=== PATIENT | female | born 1940 | race Caucasian/White ===

== ENCOUNTER 2018-03-29 18:38 | Emergency (ER) | payer MEDICARE, OTHER, SELFPAY ==
--- NOTE | 2018-03-29 18:45 | DI.RAD.S_ITS ---
PROCEDURE: XR CHEST 1V INDICATIONS: shortness of breath TECHNIQUE: One view of the chest was acquired. COMPARISON: [facility], , CHEST 1 VIEW, 09/23/2016, 8:53. FINDINGS: Surgical changes and devices: Left sided pacer. Median sternotomy. A right-sided portacatheter. Lungs and pleura: No pleural effusions or pneumothorax. Lungs are clear. Mediastinum: Mediastinal contours appear normal. Heart size is normal. Bones and chest wall: No suspicious bony lesions. Overlying soft tissues appear unremarkable. IMPRESSION: No acute process. Dictated by: Malu Giles M.D. on 03/29/2018 at 19:06 Approved by: Malu Giles M.D. on 03/29/2018 at 19:07
[2018-03-29 18:49] VITALS: BP 140/109; PULSE 121; RESP 17; TEMP 36.7; O2SAT 99; BMI 36.3
--- NOTE | 2018-03-29 18:56 | ED_ITS ---
HPI - SOB/Dyspnea General Chief Complaint: Shortness of Breath/Dyspnea Stated Complaint: told to be seen for a blood clot Time Seen by Provider: 03/29/18 18:43 Source: patient Mode of arrival: ambulatory Limitations: no limitations History of Present Illness Patient is a 77-year-old female sent from her primary care doctor's office for evaluation of a potential pulmonary embolism. Patient states she went to see her primary care doctor today for evaluation after she has been feeling fatigued for the past month. Denies any chest pain. States she has occasional shortness of breath. Does have a history of atrial fibrillation. Does not feel the atrial fibrillation. States she does not feel her heart rate beating fast. No trauma. Is not currently on any anticoagulation. At the primary care doctor's office today was noticed that her heart rate was elevated. Patient states that her primary care doctor discontinued her sotalol and doubled her metoprolol. She states she did take an extra dose of metoprolol today. Patient states she left her doctor's office and he called her later on in the day and advised her to come to the emergency department for evaluation. Dr. Yuan did call me prior to arrival stating that she was on her way and that he was concerned about a pulmonary embolism. He states the office today that they were unable to draw blood. He thought initially that the fatigue over the past month was secondary to her AFib and tachycardia however upon re-evaluating her case and also the reports of occasional shortness of breath that potentially the tachycardia was secondary to a pulmonary embolism. He stated that the patient has had renal insufficiency and there would be a concern about being able to obtain a CTA. Related Data Home Medications Medication Instructions Recorded Confirmed ascorbic acid (vitamin C) 500 mg PO QDAY #0 09/02/16 ropinirole 1 mg PO HS #0 09/02/16 sotalol 120 mg PO BID #0 09/02/16 Previous Rx's Medication Instructions Recorded ferrous sulfate [Feosol] 325 mg PO BID #60 tab 09/03/16 pantoprazole [Protonix] 40 mg PO QDAY #30 tab 09/03/16 nystatin [Nystop] 0 gm TOPICAL BID #30 09/27/16 Allergies Allergy/AdvReac Type Severity Reaction Status Date / Time Penicillins [PENICILLINS] Allergy Unknown Verified 03/29/18 18:49 Review of Systems Constitutional Reports fatigue, Denies fever(s), Denies headache(s), Reports lethargy, Reports malaise and Denies weakness ENT Ears, Nose, Mouth, and Throat: Denies vertigo, Denies dizziness and Denies headache(s) Cardiovascular Denies chest pain, Denies chest pain with activity, Denies diaphoresis, Denies syncope, Denies irregular heart rhythm, Denies leg edema, Denies palpitations, Reports dyspnea (Occasional, none now) and Denies dyspnea on exertion Respiratory Denies cough, Reports dyspnea (Occasional, none now) and Denies dyspnea on exertion Gastrointestinal Gastrointestinal: Denies constipation, Denies diarrhea, Denies nausea and Denies vomiting Genitourinary Denies dysuria Musculoskeletal Denies abnormal gait, Denies myalgias and Denies arthralgias Integumentary/Breasts Denies pruritus and Denies rash Neurologic Denies abnormal gait, Denies confusion, Denies vertigo, Denies dizziness, Denies syncope, Denies headache(s) and Denies weakness Psychiatric Denies confusion Endocrine Reports fatigue and Denies palpitations Hematologic/Lymphatic Denies easy bleeding and Denies easy bruising [facility] Medical History Afib (Acute) Social History lives independently: Yes caregiver/support person: No Smoking Status: Never smoker Exam Initial Vital Signs Initial Vital Signs: Vital Signs Temperature 98.0 F 03/29/18 18:49 Pulse Rate 121 H 03/29/18 18:49 Respiratory Rate 17 03/29/18 18:49 Blood Pressure 140/109 H 03/29/18 18:49 Pulse Oximetry 99 03/29/18 18:49 Const General: cooperative, healthy appearing, comfortable, well developed, well groomed and No acute distress Orientation: alert, awake and oriented x3 HENMT Head: normal to inspection and normocephalic Resp Effort & Inspection: normal respiratory effort Auscultation: clear to auscultation bilaterally Cardio Rate: tachycardic Rhythm: abnormal rhythm irregularly irregular Pulses: radial pulses present GI Inspection: non-distended Palpation: No firm Skin Lesions: no lesions Rashes: no rashes Neuro General: alert and oriented x3 Cognition: normal cognition Speech: speech normal Gait: normal gait Motor: muscle tone normal throughout Sensory Exam: no sensory deficits noted Extrem General: normal to inspection, capillary refill normal and No edema Psych Appearance: grossly normal and well kempt Scores GCS Wanda coma scale eye opening: Spontaneous Wanda coma scale verbal response: Orientated [place] coma scale motor response: Obey commands Wanda coma scale total score: 15 Course Orders Ordered: ED Orders 03/29/18 18:45 XR chest 1V Stat EKG-12 Lead Stat 03/29/18 19:35 B Type Natriuretic Peptide Stat Basic Metabolic Panel Stat Complete Blood Count AUTO DIFF Stat Partial Thromboplastin Time Stat Prothrombin Time INR Stat Troponin I Stat Discontinued Medications Sodium Chloride (Normal Saline 0.9%) 1,000 mls @ 1,000 mls/hr IV BOLUS ONE Stop: 03/29/18 19:42 Last Admin: 03/29/18 19:25 Dose: 1,000 mls/hr Vital Signs - 8 hr 03/29/18 18:49 03/29/18 19:57 03/29/18 20:10 Temperature 98.0 F Pulse Rate 121 H 99 H 105 H Respiratory Rate 17 16 16 Blood Pressure 140/109 H Blood Pressure [Right Arm] 100/51 L 145/97 H Pulse Oximetry 99 98 97 03/29/18 20:53 Temperature Pulse Rate 108 H Respiratory Rate 18 Blood Pressure Blood Pressure [Right Arm] 140/105 H Pulse Oximetry 96 MDM - SOB/Dyspnea Medical Records Attestation: I reviewed the patient's medical records. Lab Data Attestation: I reviewed the patient's lab results. Result diagrams: 03/29/18 19:35 03/29/18 19:35 Lab Results 03/29/18 03/29/18 03/29/18 Range/Units 19:35 19:35 19:35 WBC 7.8 (4.5-11.0) X10^3/uL RBC 4.92 (4.0-5.2) X10^6/uL Hgb 15.5 (12.0-16.0) g/dL Hct 45.3 (36-46) % MCV 92.0 (80-100) fL MCH 31.6 (26-34) PG MCHC 34.3 (30-36) % RDW 14.1 (11.6-14.8) % Plt Count 252 (150-400) X10^3/uL Neut % (Auto) 72.4 (50-75) % Lymph % (Auto) 16.0 L (25-40) % Hardy % (Auto) 8.5 (3-14) % Eos % (Auto) 2.1 (2-4) % Baso % (Auto) 1.0 (0-2) % Neut # (Auto) 5600 (5828-2674) /uL PT 11.6 (10.1-12.7) SECONDS INR 1.1 (0.9-1.3) APTT 27 (26.4-36.2) SECONDS Sodium 140 (137-145) mmol/L Potassium 4.8 (3.4-5.1) mmol/L Chloride 109 H (98-107) mmol/L Carbon Dioxide 17 L (22-32) mmol/L BUN 46 H (7-17) mg/dL Creatinine 2.40 H (0.52-1.04) mg/dL Estimated GFR 19.6 L (>60) mL/min BUN/Creatinine Ratio 19.2 (6-22) Glucose 231 H (80-110) mg/dL Calcium 9.4 (8.4-10.2) mg/dL Troponin I 0.053 H (0.01-0.034) ng/mL B-Natriuretic Peptide 466.0 H (<100) Imaging Data Chest x-ray: Radiologist's impression: PROCEDURE: XR CHEST 1V INDICATIONS: shortness of breath TECHNIQUE: One view of the chest was acquired. COMPARISON: [facility], CHEST 1 VIEW, 09/23/2016, 8:53. FINDINGS: Surgical changes and devices: Left sided pacer. Median sternotomy. A right- sided portacatheter. Lungs and pleura: No pleural effusions or pneumothorax. Lungs are clear. Mediastinum: Mediastinal contours appear normal. Heart size is normal. Bones and chest wall: No suspicious bony lesions. Overlying soft tissues appear unremarkable. IMPRESSION: No acute process. Dictated by: Malu Giles M.D. on 03/29/2018 at 19:06 Approved by: Malu Giles M.D. on 03/29/2018 at 19:07 ECG Data Attestation: I personally reviewed and interpreted this ECG as follows: Prior ECG tracings: not available for review Interpretation: Atrial fibrillation Ventricular rate of 118 Left axis deviation LVH Nonspecific ST T wave changes MDM Narrative Medical decision making narrative: Patient is currently in atrial fibrillation. Had heart rates ranging from 80s to 130s. Not hypotensive. Patient denies chest pain. Not currently short of breath. Chest x-ray is unremarkable. EKG confirms the atrial fibrillation. Patient has a GFR that prohibits obtaining a CTA for evaluation of a pulmonary embolism here in the emergency department. Interrogation of her pacemaker shows frequent episodes of atrial fibrillation with RVR however pacemaker working appropriately. Patient also with a slightly elevated troponin. Multiple times she reported that she was not having chest pain. This elevated troponin could certainly be the result of her renal insufficiency and also the result of the pacemaker. No prior troponins to compare this 1 with. Patient also with a slightly elevated BNP however not clinically in heart failure. Also hyperglycemic. Had a long discussion with the patient regarding her symptoms and her lab results. Informed her that we were unable to obtain the CTA for evaluation of the pulmonary embolism which was why she was sent here to the emergency department by her primary doctor. Informed her that to complete this workup we would need to admit her to the hospital to obtain a V/Q scan. We also discussed her slightly elevated troponin in the concerns that we had regarding ACS. After this discussion the patient stated that she did not want to be admitted to the hospital. Once again we discussed that we did not rule out the reason that she was sent here to the emergency department which was evaluation for pulmonary embolism. She expressed understanding of this. We did discuss once again the elevated troponin the concern for ACS and she again expressed understanding. Patient has a GCS of 15. In my opinion has the capacity to make decisions. She did not want to be admitted. Patient was discharged home. She was instructed to continue her medications as instructed by her primary doctor. She was instructed she needed to call her primary doctor tomorrow morning to discuss further workup of her symptoms. She was given return precautions to include chest pain shortness of breath dizziness. She expressed understanding that not diagnosing a pulmonary embolism or ACS could result in . Discharge Plan Departure Patient Disposition: Home, Self-Care Clinical Impression: A-fib, Acute renal insufficiency, Hyperglycemia, Tachycardia Discharge Date/Time: 03/29/18 21:10 Instructions: DI for Atrial Fibrillation Activity Restrictions/Additional Instructions: You opted not to be admitted to the hospital today despite not definitively ruling out a pulmonary embolism which is why your primary doctor sent you here.. Because of this you do need to contact her primary doctor tomorrow morning. Continue all of your medications as directed by your primary doctor. Return to the emergency department for any new symptoms, chest pain, worsening problems breathing, passing out, or any other concerning symptoms. Prescriptions: No Action ropinirole 0.5 MG tablet 1 mg PO HS Qty: 0 RF: 0 sotalol 120 MG tablet 120 mg PO BID Qty: 0 RF: 0 ascorbic acid (vitamin C) 500 MG tablet 500 mg PO QDAY Qty: 0 RF: 0 pantoprazole [Protonix] 40 MG tablet,delayed release (DR/EC) 40 mg PO QDAY Qty: 30 RF: 1 ferrous sulfate [Feosol] 325 MG tablet 325 mg PO BID Qty: 60 RF: 1 nystatin [Nystop] 30 GM powder Topical BID Qty: 30 RF: 0
[2018-03-29] MEDS: SODIUM CHLORIDE 0.9% 1,000 ML 1000 ML IV (19:25)
[2018-03-29 19:44] LABS: Add Manual Diff / Slide Review NO; Eosinophils Percent Auto 2.1 % (2-4); Hematocrit 45.3 % (36-46); Hemoglobin 15.5 g/dL (12.0-16.0); Mean Corpuscular HGB Conc 34.3 % (30-36); Mean Corpuscular Hemoglobin 31.6 PG (26-34); Monocytes Percent Auto 8.5 % (3-14); Neutrophils Absolute Auto 5600 /uL (3000-5900); Neutrophils Percent Auto 72.4 % (50-75); Platelet Count 252 X10^3/uL (150-400); Red Blood Cell Count 4.92 X10^6/uL (4.0-5.2); Red Cell Distribution Width 14.1 % (11.6-14.8); White Blood Cell Count 7.8 X10^3/uL (4.5-11.0)
[2018-03-29 19:55] LABS: INR 1.1 (0.9-1.3); Prothrombin Time 11.6 SECONDS (10.1-12.7)
[2018-03-29 19:57] VITALS: BP 100/51; PULSE 99; RESP 16; O2SAT 98
[2018-03-29 19:57] LABS: PTT Partial Thromboplastin Tim 27 SECONDS (26.4-36.2)
[2018-03-29 19:58] LABS: BUN Creatinine Ratio 19.2 (6-22); Blood Urea Nitrogen 46 mg/dL (7-17); Calcium 9.4 mg/dL (8.4-10.2); Carbon Dioxide 17 mmol/L (22-32); Chloride 109 mmol/L (98-107); Estimated Glomerular Filt Rate 19.6 mL/min (>60); Glucose 231 mg/dL (80-110); HEMOLYSIS 20 (0-50); Potassium 4.8 mmol/L (3.4-5.1); Sodium 140 mmol/L (137-145)
[2018-03-29 20:10] VITALS: BP 145/97; PULSE 105; RESP 16; O2SAT 97
[2018-03-29 20:10] LABS: Troponin I 0.053 ng/mL (0.01-0.034)
[2018-03-29 20:53] VITALS: BP 140/105; PULSE 108; RESP 18; O2SAT 96
[2018-03-29 21:07] VITALS: BP 141/105; PULSE 119; RESP 16; O2SAT 96
== END 2018-03-29 21:10 | disposition home or self-care (01) ==
PROVIDERS: Emergency Provider Emergency Medicine; PCP Internal Medicine
DX: I48.91 Unspecified atrial fibrillation (principal); N28.9 Disorder of kidney and ureter, unspecified; R73.9 Hyperglycemia, unspecified
CPT/HCPCS: 71045; 80048; 83880; 84484; 85025; 85610; 85730; 93005; 93010; 96360; 96361; 99283; 99285

== ENCOUNTER → 2018-03-30 14:13 | Outpatient (CLI) | payer MEDICARE, OTHER, SELFPAY ==
--- NOTE | 2018-03-30 | DI.NM.S_ITS ---
PROCEDURE: NM PUL VENT AND PERFUSION RADIOPHARMACEUTICAL: 35.6 mCi Tc-99m DTPA aerosol by inhalation and 9.5 mCi Tc-99m MAA intravenously. INDICATIONS: SOB TECHNIQUE: Ventilation images were obtained first with Tc-99m DTPA aerosol. Subsequently, perfusion images were acquired after intravenous injection of Tc-99m MAA. Anterior, posterior, DAMON, LULA, RPO, LPO, left and right lateral views were obtained. COMPARISON: None. FINDINGS: Small subsegmental perfusion defects are seen in posterior segment of right upper lobe and superior segment of left lower lobe. No segmental mismatched defects are seen. IMPRESSION: Very low probability for pulmonary emboli. Findings were called to Dr. Yuan's office at 3:45 PM on 03/30/18. Dictated by: Jignesh Hernandez M.D. on 03/30/2018 at 15:42 Approved by: Jignesh Hernandez M.D. on 03/30/2018 at 15:57
== END ==
PROVIDERS: PCP Internal Medicine; Visit Provider Internal Medicine
DX: R06.02 Shortness of breath (principal)
CPT/HCPCS: 78582; A9539; A9540

== ENCOUNTER → 2018-04-05 09:11 | Outpatient (CLI) | payer MEDICARE, OTHER, SELFPAY ==
--- NOTE | 2018-04-05 21:30 | DI.ECHO.S_ITS ---
Echocardiogram Report + + :Name: BERTHA HERNANDEZ Study Date: 04/05/2018 Height: 66 in : :[facility] Weight: 225 lb: : Gender: Female BSA: 2.1 m2 : :: 1940 Age: 77 yrs : :Reason For Study: Congestive Heart Failure : :Ordering Physician: Dr. Jean : :[place] Performed By: Amisha Rosales : + + Interpretation Summary -The study quality was technically difficult. A contrast injection of Definity was performed to improve assessment of LV function. -The patient was in atrial fibrillation with heart rates between 67-133 bpm during the exam. There are multiple PVCs during the exam. -The left ventricular cavity is small. Left ventricular wall thickness is severely increased. 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 -The left atrium is severely dilated. -The reduced mitral leaflet separation suggests decreased flow through the mitral valve and poor cardiac output. -There is severe mitral annular calcification. -There is a pacemaker lead in the right ventricle. -Right ventricular systolic function is moderately reduced. -Comparison is made with the echocardiogram of 11/11/2017. -Patient is now in atrial fibrillation which is not well-tolerated with severe diastolic dysfunction as evident by poor forward flow and low stroke volume. The severely increased wall thickness can indicate hypertrophic cardiomyopathy or be due an infiltrative cardiomyopathy(cardiac amyloidosis). Procedure: A two-dimensional transthoracic echocardiogram with color flow and Doppler was performed. A contrast injection of Definity was performed to improve assessment of LV function. The study quality was technically difficult. Comparison is made with the echocardiogram of 11/11/2017. The patient could not tolerate probe pressure from parasternal and subcostal views. No audible blood pressure readings obtained. The patient was in atrial fibrillation with heart rates between 67-133 bpm during the exam. Left Ventricle: The left ventricular cavity is small. Left ventricular wall thickness is severely increased. 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 Diastolic function could not be accurately assessed due to atrial fibrillation. Right Ventricle: There is a pacemaker lead in the right ventricle. The right ventricle is grossly normal size. Right ventricular systolic function is moderately reduced. Atria: The left atrium is severely dilated. The right atrium is mildly dilated. Mitral Valve: There is severe mitral annular calcification. The reduced mitral leaflet separation suggests decreased flow through the mitral valve and poor cardiac output. Doppler data is inadequate (no CW). But suspect some degree of stenosis given the color doppler pattern. There is mild mitral regurgitation. Aortic Valve: The aortic valve opens well. No aortic regurgitation is present. Tricuspid Valve: There is mild tricuspid regurgitation. The right ventricular systolic pressure is estimated at 37 mmHg assuming a right atrial pressure of 3 mm Hg. Pulmonic Valve: The pulmonic valve is not well visualized. Great Vessels: The aortic root is not well visualized. The ascending aorta is normal in size. The pulmonary artery is not well visualized, but is probably normal size. The IVC is of normal diameter and collapses greater than 50% with a sniff. This suggests a low right atrial pressure of 3 mm Hg. Pericardium/ Pleura There is no pericardial effusion. MMode/2D Measurements & Calculations LVIDd: 3.7 cm asc Aorta Diam: 3.2 cm LVIDs: 3.0 cm FS: 21.1 % EPSS: 1.2 cm IVSd: 1.7 cm LVPWd: 1.5 cm LV rich[place]. diameter/BSA (cm/m^2): 1.8 LV sys. diameter/BSA (cm/m^2): 1.4 LA A2 area: 30.0 cm2 RA long axis: 4.1 cm LA A4 area: 31.1 cm2 RA area: 13.2 cm2 LA length (vol): 6.6 cm RA vol: 35.6 ml LA vol: 119.3 ml RA : 17.0 ml/m2 LA vol index: 56.7 ml/m2 IVC diam: 1.7 cm TAPSE: 0.74 cm LVAd ap4: 12.6 cm2 LVAs ap4: 10.8 cm2 LVLs ap4: 6.1 cm LVAd ap2: 19.6 cm2 LVLd ap2: 6.6 cm LVAs ap2: 8.4 cm2 LVLs ap2: 4.8 cm Doppler Measurements & Calculations Ao V2 max: 86.7 cm/sec LVOT Max Guillermo: 67.8 cm/sec Ao V2 mean: 63.6 cm/sec LV V1 max P.9 mmHg Ao max P.0 mmHg LV V1 VTI: 12.3 cm Ao mean P.8 mmHg sev ratio: 0.76 Ao V2 VTI: 16.2 cm TR max guillermo: 290.1 cm/sec MV V2 mean: 73.2 cm/sec TR max P.7 mmHg MV mean P.7 mmHg PA V2 max: 64.3 cm/sec MV V2 VTI: 21.3 cm PA V2 mean: 43.4 cm/sec PA mean P.88 mmHg PA Accel Time: 0.08 sec _ Electronically signed by: Tang Figueroa M.D. on Reading Physician:04/05/2018 09:30 PM
== END ==
PROVIDERS: PCP Internal Medicine; Visit Provider Internal Medicine
DX: I08.1 Rheumatic disorders of both mitral and tricuspid valves (principal); I50.9 Heart failure, unspecified; I48.91 Unspecified atrial fibrillation; I49.3 Ventricular premature depolarization; Z95.0 Presence of cardiac pacemaker
CPT/HCPCS: 93306; Q9957

== ENCOUNTER 2018-04-13 08:56 | Observation (INO) | payer MEDICARE, OTHER, SELFPAY ==
[2018-04-13] VITALS (8 sets, daily range): BP systolic 119–158; BP diastolic 61–93; PULSE 60–72; RESP 14–20; TEMP 36.2–36.4; O2SAT 94–98; BMI 38.0; BMI 37.2
--- NOTE | 2018-04-13 09:18 | ED_ITS ---
HPI - Neuro Symptoms/Deficit General Chief Complaint: Neuro Symptoms/Deficit Stated Complaint: Code Stroke Time Seen by Provider: 04/13/18 09:21 Source: patient and EMS Mode of arrival: EMS History of Present Illness HPI Narrative: Patient is a 77-year-old female presenting as a code stroke with all left-sided weakness and facial drooping. She lives alone. Her last known normal is actually on known. She said that she was awake all night last evening she tried to get out of bed this morning she slid out of bed she was unable to get up she was able to pull cord from the wall for somebody to come in and help her. At that time EMS was called. She has obvious left facial droop and left-sided weakness. But is of awake and alert and able to answer questions. She has a past medical history of AFib previously on Pradaxa but stopped due to GI bleeding x2 in 2017. According to records he was actually seen evaluated by her primary last week on 04/05/2018. At that time she had blood work which showed an increase of creatinine of 2.4, previously 1.6. Location: left face Severity: moderate Related Data Home Medications Medication Instructions Recorded Confirmed ascorbic acid (vitamin C) 500 mg PO QDAY #0 09/02/16 ropinirole 1 mg PO HS #0 09/02/16 sotalol 120 mg PO BID #0 09/02/16 Previous Rx's Medication Instructions Recorded ferrous sulfate [Feosol] 325 mg PO BID #60 tab 09/03/16 pantoprazole [Protonix] 40 mg PO QDAY #30 tab 09/03/16 nystatin [Nystop] 0 gm TOPICAL BID #30 09/27/16 Allergies Allergy/AdvReac Type Severity Reaction Status Date / Time Penicillins [PENICILLINS] Allergy Unknown Verified 04/13/18 09:51 Review of Systems Review of Systems All systems reviewed & are unremarkable except as noted in HPI and below Constitutional Denies chills, Denies fever(s), Denies lethargy and Denies weakness Eyes Denies blurry vision, Denies change in vision and Denies diplopia ENT Ears, Nose, Mouth, and Throat: Denies change in voice, Denies neck pain and Denies sore throat Cardiovascular Reports irregular heart rhythm, Denies dyspnea and Denies dyspnea on exertion Respiratory Denies cough, Denies dyspnea, Denies dyspnea on exertion and Denies wheezing Comments: Seen on 03/29/2018 full lower shortness of breath unable to rule out PE due to create function Gastrointestinal Gastrointestinal: Denies abdominal pain, Denies change in bowel habits, Denies diarrhea, Denies nausea and Denies vomiting Musculoskeletal Denies neck pain Neurologic Reports as per HPI and Denies weakness Allergic/Immunologic Denies wheezing PFSH Medical History Diabetes (Acute) GI bleed (Acute) Hyperlipidemia (Acute) Hypertension (Acute) Hypothyroid (Acute) Afib (Acute) Surgical History Status post colectomy (Acute) Status post hysterectomy (Acute) Status post tonsillectomy and adenoidectomy (Acute) Social History lives independently: Yes caregiver/support person: No Smoking Status: Never smoker Exam Initial Vital Signs Initial Vital Signs: Vital Signs Temperature 97.3 F L 04/13/18 08:43 Pulse Rate 67 04/13/18 08:43 Respiratory Rate 18 04/13/18 08:43 Blood Pressure 158/64 H 04/13/18 08:43 Pulse Oximetry 95 04/13/18 08:43 GENERAL: Alert elderly female with a left facial droop alert and oriented x3 HEENT: Head atraumatic,EOMI, pupils reactive, left facial droop, neck is supple no JVD CARDIOVASCULAR: Regular rate and rhythm without murmurs, rubs or gallops. RESPIRATORY: Breath sounds equal bilaterally, no wheezes rales or rhonchi. ABDOMEN: Soft, nontender. Normoactive bowel sounds all 4 quadrants. No guarding or rebound. EXTREMITIES: Normal range of motion, no clubbing or edema. Neurovascularly intact NEUROLOGICAL: Alert and oriented x4. Left facial droop not able to pick left leg up off the gurney not able to hold left arm but able to move his fingers. No dysarthria or a facial appreciated SKIN: Warm, dry, no laceration, no petechiae, no rashes or lesions. Scores NIH Stroke Scale Level of Conciousness: Alert, keenly responsive Ask month/age: Answers both questions correctly. Open/close eyes, close hand: Performs both tasks correctly Best gaze horizontal: Normal Visual [place]: No visual loss Facial palsy: Partial paralysis, total or near total paralysis of lower face Left arm drift: No effort against gravity Right arm drift: No drift for full 10 sec Left leg drift: No effort against gravity Right leg drift: No drift for full 10 sec Limb ataxia: Absent Sensory on face/arms/legs: Normal, no sensory loss Best language: No aphasia, normal Dysarthria: Normal Extinction or inattention: No abnormality Total NIH Stroke scale score: 8 Course Orders Ordered: ED Orders 04/13/18 09:14 EKG-12 Lead Stat 04/13/18 09:27 Complete Blood Count AUTO DIFF Stat Comprehensive Metabolic Panel Stat 04/13/18 09:51 CT angio head and neck Stat CT head/brain wo con Stat 04/13/18 10:10 Partial Thromboplastin Time Stat Prothrombin Time INR Stat 04/13/18 12:31 Consult to Discharge Planning Routine Consult to Occupational Therapy Evaluate & Treat Consult to Physical Therapy Evaluate & Treat Consult to Speech Therapy Evaluate & Treat Education, smoking cessation ONGOING 04/14/18 12:45 Basic Metabolic Panel DAILY Acetaminophen (Tylenol) 650 mg PO Q6HR PRN PRN Reason: Fever Aspirin (Aspirin Ec) 325 mg PO DAILY CINDY Atorvastatin Calcium (Lipitor) 80 mg PO BEDTIME CINDY Enoxaparin Sodium (Lovenox) 30 mg SUBCUT 1700 CINDY Labetalol HCl (Trandate) 10 mg IV Q4HR PRN PRN Reason: Hypertension Ropinirole HCl (Requip) 1 mg PO BEDTIME CINDY Sotalol HCl (Betapace) 120 mg PO BID CINDY Discontinued Medications Aspirin (Aspirin) 300 mg IN NOW ONE Stop: 04/13/18 12:26 Last Admin: 04/13/18 12:43 Dose: Not Given Aspirin (Aspirin Ec) 324 mg PO NOW ONE Stop: 04/13/18 12:45 Last Admin: 04/13/18 12:47 Dose: 324 mg Consultations Consultation #1: Initially called and spoke with Neurology. Noncontrasted head CT was done however due to her most recent creatinine of 2.[address] angio. Urology recommended and requested CT angio if there is a large vessel occlusion she would require thrombectomy, and if large vessel occlusion could have more severe debilitating long-term affects. I have spoken with her after the CT angio. She has reviewed the images herself. No large vessel occlusion appreciated. Is still recommends admission MRI and further evaluation. Time: 09:16 Consultation #2: Dr. Irvin happily accepts for admission Vital Signs - 8 hr 04/13/18 08:43 04/13/18 09:20 04/13/18 10:52 Temperature 97.3 F L Pulse Rate 67 61 60 Respiratory Rate 18 18 18 Blood Pressure 158/64 H Blood Pressure [Left Arm] 154/81 H 119/61 Pulse Oximetry 95 96 98 04/13/18 11:42 Temperature Pulse Rate 60 Respiratory Rate 14 Blood Pressure Blood Pressure [Left Arm] 122/78 H Pulse Oximetry MDM - Neuro Symptoms/Deficit Medical Records Attestation: I reviewed the patient's medical records. Lab Data Attestation: I reviewed the patient's lab results. Result diagrams: 04/13/18 09:27 04/13/18 09:27 Lab Results 04/13/18 04/13/18 04/13/18 Range/Units 09:27 09:27 10:10 WBC 6.7 (4.5-11.0) X10^3/uL RBC 4.53 (4.0-5.2) X10^6/uL Hgb 14.1 (12.0-16.0) g/dL Hct 42.5 (36-46) % MCV 93.8 (80-100) fL MCH 31.1 (26-34) PG MCHC 33.1 (30-36) % RDW 14.7 (11.6-14.8) % Plt Count 163 (150-400) X10^3/uL Neut % (Auto) 78.7 H (50-75) % Lymph % (Auto) 11.9 L (25-40) % [place] % (Auto) 6.7 (3-14) % Eos % (Auto) 2.1 (2-4) % Baso % (Auto) 0.6 (0-2) % Neut # (Auto) 5200 (4522-7905) /uL PT 10.8 (10.1-12.7) SECONDS INR 1.0 (0.9-1.3) APTT 29 D (26.4-36.2) SECONDS Sodium 147 H (137-145) mmol/L Potassium 4.5 (3.4-5.1) mmol/L Chloride 109 H (98-107) mmol/L Carbon Dioxide 25 (22-32) mmol/L BUN 39 H (7-17) mg/dL Creatinine 1.80 H (0.52-1.04) mg/dL Estimated GFR 27.4 L (>60) mL/min BUN/Creatinine Ratio 21.7 (6-22) Glucose 255 H (80-110) mg/dL Calcium 9.0 (8.4-10.2) mg/dL Total Bilirubin 0.6 (0.2-1.3) mg/dL AST 37 H (14-36) IU/L ALT 35 (9-52) IU/L Alkaline Phosphatase 127 H (38-126) U/L Total Protein 7.0 (6.3-8.2) g/dL Albumin 3.9 (3.5-5.0) g/dL Globulin 3.1 (1.7-4.1) g/dL Albumin/Globulin Ratio 1.3 (1.0-2.8) Imaging Data CT scan - head: Radiologist's impression: Impression 1. No evidence of hemorrhage or other imaging contraindication tPA. 2. Small hypodense focus in the right caudate head may represent a small lacunar infarct of indeterminate acuity. 3. Mild chronic white matter small vessel ischemic changes and cerebral volume loss. Findings discussed with Dr. Keen on 04/13/2018 had 9:[address] angio head: Radiologist's impression: PROCEDURE: CT ANGIO HEAD AND NECK INDICATIONS: left weakness unknown LKN TECHNIQUE: Pre-contrast 4.5 mm thick sections acquired from the foramen magnum to the vertex. After the administration of intravenous contrast, 1 mm thick sections acquired from the aortic arch through the [place] of [place]. Post-contrast 4.5 mm thick sections then re- acquired from the foramen magnum to the vertex. 3-dimensional maximum-intensity- projection (MIP) and/or volume rendering reformats were acquired of the central intracranial vasculature and neck separately. COMPARISON: [facility], CT, CT CHEST WO CON, 04/09/2015, 18:17. [facility], CT, HEAD WITHOUT CONTRAST, 09/19/2016, 11:29. [facility], CT, CT HEAD/BRAIN WO CON, 04/13/2018, 8:52. FINDINGS: Image quality: Excellent. BRAIN: CSF spaces: Ventricles are normal in size and shape. Basal cisterns are patent. No extra-axial fluid collections. Brain: No midline shift. No intracranial bleeds or masses. [place]-white matter interface appears intact. Skull and face: Calvarium and facial bones appear intact, without suspicious lesions. Orbits appear normal. Sinuses: Sinuses and mastoids are clear. HEAD CT ANGIOGRAPHY: Anterior circulation: Intracranial internal carotid arteries are normal in size and flow. The flow within the paired anterior cerebral arteries is normal and symmetric. The flow within the middle cerebral arteries is normal and symmetric. The anterior communicating artery is seen. No aneurysms are seen. Posterior circulation: Visualized portions of the vertebral arteries demonstrate normal caliber, and join to form a normal appearing basilar artery. Flow within the posterior cerebral arteries is normal and symmetric. No aneurysms are seen. NECK CT ANGIOGRAPHY: Carotid system: The great vessels demonstrate a conventional anatomy as they arise from the aortic arch. There are scattered atherosclerotic calcifications without focal stenosis The origins of the common carotid arteries appear patent. The common carotid arteries demonstrate normal caliber and courses. The bifurcation regions are both widely patent. The internal carotid arteries demonstrate normal calibers and courses. Posterior circulation: The origins of the vertebral arteries both appear widely patent. The more superior extracranial portions of both vertebral arteries also demonstrate normal courses and calibers. They join to form a normal appearing basilar artery. Soft tissues: Partially visualized possible prominent right hilar lymph node seen on image 234 although technically indeterminate and the study entirely. Bones: No suspicious bony lesions. Visualized cervical spine appears normally aligned. IMPRESSION: No intracranial focal stenosis or occlusion. No ICA stenosis. Questionable enlarged (age indeterminate) right hilar lymph nodes however not entirely included on the study. Contrast enhanced chest CT could be performed for further evaluation if it is deemed clinically necessary. Any quantitative measurements of stenosis were performed using NASCET criteria. Dictated by: Elvin Best M.D. on 04/13/2018 at 10:00 ECG Data Attestation: I personally reviewed and interpreted this ECG as follows: Prior ECG tracings: available for review Interpretation: Paced rhythm rate 72 no ischemia similar to previous MDM Narrative Medical decision making narrative: Patient is not a thrombectomy candidate. Her exact last known normal it is unknown, however may still be a thrombectomy candidate. Benefits seem to outweigh risks for the CTA and renal function, therefore decision for CTA. CTA does not show large vessel occlusion. His neurology is aware of results. Patient's symptoms are slowly improving. She will be admitted for further evaluation and monitoring. Based on her GI bleeding episodes unknown if she is a candidate for more aggressive anticoagulation. Discharge Plan Departure Patient Disposition: Admitted As Inpatient Clinical Impression: CVA (cerebral vascular accident) Admit Date/Time: 04/13/18 10:53 Admit Provider: Magali Irvin
[2018-04-13 09:34] LABS: Add Manual Diff / Slide Review NO; Basophils Percent Auto 0.6 % (0-2); Eosinophils Percent Auto 2.1 % (2-4); Hematocrit 42.5 % (36-46); Hemoglobin 14.1 g/dL (12.0-16.0); Lymphocytes Percent Auto 11.9 % (25-40); Mean Corpuscular HGB Conc 33.1 % (30-36); Mean Corpuscular Hemoglobin 31.1 PG (26-34); Mean Corpuscular Volume 93.8 fL (80-100); Monocytes Percent Auto 6.7 % (3-14); Neutrophils Absolute Auto 5200 /uL (3000-5900); Neutrophils Percent Auto 78.7 % (50-75); Platelet Count 163 X10^3/uL (150-400); Red Blood Cell Count 4.53 X10^6/uL (4.0-5.2); Red Cell Distribution Width 14.7 % (11.6-14.8); White Blood Cell Count 6.7 X10^3/uL (4.5-11.0)
[2018-04-13 09:43] LABS: Alanine Aminotransferase 35 IU/L (9-52); Albumin 3.9 g/dL (3.5-5.0); Albumin Globulin Ratio 1.3 (1.0-2.8); Alkaline Phosphatase 127 U/L (38-126); Aspartate Aminotransferase 37 IU/L (14-36); BUN Creatinine Ratio 21.7 (6-22); Bilirubin Total 0.6 mg/dL (0.2-1.3); Blood Urea Nitrogen 39 mg/dL (7-17); Carbon Dioxide 25 mmol/L (22-32); Chloride 109 mmol/L (98-107); Estimated Glomerular Filt Rate 27.4 mL/min (>60); Globulin 3.1 g/dL (1.7-4.1); Glucose 255 mg/dL (80-110); HEMOLYSIS 41 (0-50); Potassium 4.5 mmol/L (3.4-5.1); Sodium 147 mmol/L (137-145)
--- NOTE | 2018-04-13 09:51 | DI.CT.S_ITS ---
PROCEDURE: CT ANGIO HEAD AND NECK INDICATIONS: left weakness unknown LKN TECHNIQUE: Pre-contrast 4.5 mm thick sections acquired from the foramen magnum to the vertex. After the administration of intravenous contrast, 1 mm thick sections acquired from the aortic arch through the [place] of [place]. Post-contrast 4.5 mm thick sections then re-acquired from the foramen magnum to the vertex. 3-dimensional zkbmpnw-xldozmvug-lquaodmdrd (MIP) and/or volume rendering reformats were acquired of the central intracranial vasculature and neck separately. COMPARISON: [facility], CT, CT CHEST WO CON, 04/09/2015, 18:17. [facility], CT, HEAD WITHOUT CONTRAST, 09/19/2016, 11:29. [facility], CT, CT HEAD/BRAIN WO CON, 04/13/2018, 8:52. FINDINGS: Image quality: Excellent. BRAIN: CSF spaces: Ventricles are normal in size and shape. Basal cisterns are patent. No extra-axial fluid collections. Brain: No midline shift. No intracranial bleeds or masses. [place]-white matter interface appears intact. Skull and face: Calvarium and facial bones appear intact, without suspicious lesions. Orbits appear normal. Sinuses: Sinuses and mastoids are clear. HEAD CT ANGIOGRAPHY: Anterior circulation: Intracranial internal carotid arteries are normal in size and flow. The flow within the paired anterior cerebral arteries is normal and symmetric. The flow within the middle cerebral arteries is normal and symmetric. The anterior communicating artery is seen. No aneurysms are seen. Posterior circulation: Visualized portions of the vertebral arteries demonstrate normal caliber, and join to form a normal appearing basilar artery. Flow within the posterior cerebral arteries is normal and symmetric. No aneurysms are seen. NECK CT ANGIOGRAPHY: Carotid system: The great vessels demonstrate a conventional anatomy as they arise from the aortic arch. There are scattered atherosclerotic calcifications without focal stenosis The origins of the common carotid arteries appear patent. The common carotid arteries demonstrate normal caliber and courses. The bifurcation regions are both widely patent. The internal carotid arteries demonstrate normal calibers and courses. Posterior circulation: The origins of the vertebral arteries both appear widely patent. The more superior extracranial portions of both vertebral arteries also demonstrate normal courses and calibers. They join to form a normal appearing basilar artery. Soft tissues: Partially visualized possible prominent right hilar lymph node seen on image 234 although technically indeterminate and the study entirely. Bones: No suspicious bony lesions. Visualized cervical spine appears normally aligned. IMPRESSION: No intracranial focal stenosis or occlusion. No ICA stenosis. Questionable enlarged (age indeterminate) right hilar lymph nodes however not entirely included on the study. Contrast enhanced chest CT could be performed for further evaluation if it is deemed clinically necessary. Any quantitative measurements of stenosis were performed using NASCET criteria. Dictated by: Elvin Best M.D. on 04/13/2018 at 10:00 Approved by: Elvin Best M.D. on 04/13/2018 at 10:09
--- NOTE | 2018-04-13 09:51 | DI.CT.S_ITS ---
PROCEDURE: CT HEAD/BRAIN WO CON INDICATIONS: Stroke symptoms. Left-sided weakness. TECHNIQUE: Noncontrast 4.5 mm thick angled axial sections acquired from the foramen magnum to the vertex, with coronal and sagittal reformats. For radiation dose reduction, the following was used: automated exposure control, adjustment of mA and/or kV according to patient size. COMPARISON: None. FINDINGS: Image quality: Excellent. CSF spaces: Basal cisterns are patent. No extra-axial fluid collections. The ventricles are symmetric in size and shape. There is mild cerebral volume loss, with resultant ventricular and sulcal prominence. Brain: No intracranial hemorrhage, mass, or mass effect. There is a small hypodensity in right caudate head which may represent a small lacunar infarct of indeterminate acuity. There are subcortical, periventricular and deep white matter hypodensities consistent with mild chronic small vessel ischemic changes. There is intracranial internal carotid artery atherosclerosis. Skull and face: Calvarium and visualized facial bones appear intact, without suspicious lesions. Sinuses: Visualized sinuses and mastoids are clear. IMPRESSION: 1. No evidence of hemorrhage or other imaging contraindication to TPA. 2. Small hypodense focus in the right caudate head may represent a small lacunar infarct of indeterminate acuity. 3. Mild chronic white matter small vessel ischemic changes and cerebral volume loss. Findings discussed with Dr. Keen on 04/13/18 at 9:05 AM. Dictated by: Jairo Langford M.D. on 04/13/2018 at 9:04 Approved by: Jairo Langford M.D. on 04/13/2018 at 9:08
[2018-04-13 10:28] LABS: Prothrombin Time 10.8 SECONDS (10.1-12.7)
[2018-04-13 10:30] LABS: PTT Partial Thromboplastin Tim 29 SECONDS (26.4-36.2)
[2018-04-13] MEDS: ASPIRIN EC 81 MG TABLET 324 MG PO (12:47)
--- NOTE | 2018-04-13 13:49 | PC.NURSE ---
1300 arrived from ED via stretcher. Pt is awake, oriented x3, was not sure of the day of the week. Pt push & pad machine feeder are equal/strong, NIH stroke scale 100%. Pt able to swallow w/o diff., Instructed Pt to have HOB upright before swallowing. Pt refuses to have HOB > 30 degrees, Pt states is uncomfortable. Pt has a colostomy D/T crohns disease. 1400 Pt took in jello & sips of water, maida well. Tele on: SR 60s. VS wnl. Pt states she did not fall at home, but did slid oob to the floor. Denies pain or injury.
--- NOTE | 2018-04-13 14:45 | PT.IIE ---
Current Diagnoses Type 2 diabetes mellitus without complications (04/13/18) Morbid (severe) obesity due to excess calories (04/13/18) Essential (primary) hypertension (04/13/18) Paroxysmal atrial fibrillation (04/13/18) Cerebral infarction, unspecified (04/13/18) Unspecified kidney failure (04/13/18) Surgical History (Last Reviewed 04/13/18 @ 16:16 by Magali Irvin MD) Status post colectomy (Acute) Status post hysterectomy (Acute) Status post tonsillectomy and adenoidectomy (Acute) Medical History (Last Reviewed 04/13/18 @ 16:16 by Magali Irvin MD) Chronic renal disease, stage 3, moderately decreased glomerular filtration rate (GFR) between 30-59 mL/min/1.73 square meter (Acute) Concussion (Acute) Crohn's disease (Acute) Diabetes (Acute) GI bleed (Acute) History of shingles (Acute) Hx SBO (Acute) Hyperlipidemia (Acute) Hypertension (Acute) Hypothyroid (Acute) Ileostomy, has currently (Acute) Neuropathy (Acute) Osteoarthritis (Acute) Pacemaker (Acute) Sleep apnea (Acute) Afib (Acute) Physical Therapy Inpatient Evaluation/Re-Eval M1 PT/OT-IP Prior Functional Status Start: 04/13/18 16:22 Freq: NEEDED Status: Active Protocol: Document 04/13/18 14:45 MDD (Rec: 04/13/18 16:38 MDD [email or web address]) Medical Review Prior Functional Status Medical History Reviewed Yes Communication normal Mobility and Gait independent with no AD Activities of Daily Living and IADL's independent with ADL's Social History Household Members none Living Arrangements House Number of Floors (Floors) One Floor Number of Stairs To Enter/Railing? no steps Home Environment High Toilet Walk in Shower Employment Status Retired Additional Social History Comment Pt lives alone in a house in [facility]. 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 Therapy Pain Assessment Pain When Pain Assessed At Rest Pain Present Pain Present Denied Pain M4 PT-IP Mobility and Gait Start: 04/13/18 16:22 Freq: NEEDED Status: Active Protocol: Document 04/13/18 14:45 MDD (Rec: 04/13/18 16:38 MDD [email or web address]) PT-Bed Mobility Assessment Rolling Type of Rolling Roll to Left Level of Assist Contact Guard Assistance Supine to Sit Supine to Sit Minimal Assistance Sit to Supine Sit to Supine Independent Scooting Scooting to Edge of Bed Independent PT-Transfer Assessment Sit to and From Stand Sit to and from Stand Contact Guard Assistance Equipment Transfer Assistive Device Gait Belt Gait Assessment Gait Gait Assistance Required: Contact Guard Assist Distance (Feet) (feet) 30 Assistive Devices Assistive Device Gait Belt Gait Deviations General Gait Pattern Within Normal Limits Decreased Stride Length Step-to Gait Wide Based Gait Comments Gait Comments Pt demonstrates slightly wide BHOS, appears mildly unsteady PT-Balance Assessment Sitting Balance and Reactions Static Sitting Balance Ability Good Dynamic Sitting Balance Ability Good Standing Balance and Reactions Static Standing Balance Ability Fair Dynamic Standing Balance Ability Fair M5 PT-IP Objective Assessments Start: 04/13/18 16:22 Freq: NEEDED Status: Active Protocol: Document 04/13/18 14:45 MDD (Rec: 04/13/18 16:38 MDD [email or web address]) Orientation Orientation/Cognition Level of Alertness Alert Orientation Name Age Birthday Month Date Year Day of Week Place Situation Language Function Ability No Deficits Noted Safety Awareness Understands Safety Issues Memory Description No Deficits Noted Gross Range of Motion Lower Extremity ROM Assessment Within Functional Limits Strength Lower Extremity Strength Assessment Left Impaired Hip L hip flexion 4+/5, R hip flexion 5/5 Knee L knee extension 4+/5, R knee flexion 5/5 Ankle L ankle df 4+/5, R ankle df 5/ 5 Comments Strength Comments Very minor deficits noted L LE - not enought to functionallly affect gait. Sensation Assessment Sensation Gross Sensation WNL Light Touch Intact M6 PT-IP Treatment Start: 04/13/18 16:22 Freq: NEEDED Status: Active Protocol: Document 04/13/18 14:45 MDD (Rec: 04/13/18 16:38 MDD [email or web address]) Physical Therapy Treatment Education Education Provided Safety M7 PT-IP Assessment and Plan Start: 04/13/18 16:22 Freq: NEEDED Status: Active Protocol: Document 04/13/18 14:45 MDD (Rec: 04/13/18 16:38 MDD [email or web address]) PT Summary Assessment and Plan Potential Rehabilitation Potential Good Status of Condition at Evaluation Evolving Summary Impairments Balance Bed Mobility Transfers Gait Activity Tolerance Progress Towards Goals Progressing Toward Goals Assessment Summary Pt required min A for supine to sit and CGA for safety with gait. Evaluation cut short today due to doctor coming in to assess her. She appears close to her functional baseline, but does seem a little unsteady on her feet. She may benefit from inpatient therapy to maximize function prior to d/c home. Goals Bed Mobility Goal Independent Transfer Goal Independent Gait Goal Independent Gait Distance 50 Days to Meet Goals 3 Frequency of Treatment Frequency Of Treatment Once a Day Treatment Plan Physical Therapy Treatment Plan Bed Mobility Training Transfer Training Gait Training Therapeutic Exercise Other Recommendations and Next Treatment Perform formal balance Focus assessment to identify fall risk, continue with bed mobility. Recommendations To Nursing Amount of Assist Needed 1 Person Assist Discharge Recommendations PT Discharge Recommendations Home
--- NOTE | 2018-04-13 16:12 | PM.HP.1 ---
History of Present Illness Date Patient Seen: 04/13/18 Chief complaint: Code Stroke Narrative: Patient is a 77 y/o female with a complicated past medical history. She has a history of atrial fibrillation previously treated with pradaxa that was discontinued secondary to Upper GI bleeding. The patient has had a septomyomectomy prior to this. She is a type 2 diabetic, has hypertension, hypothyroidism, crohn's disease with a history of colectomy and ileostomy placement. Patient was well until this morning when she attempted to get out of bed and fell. She was unable to get up and was transported to the hospital for evaluation. She had no slurred speech, facial weakness, numbness tingling or weakness. She was unable to ambulate. A code stroke was called and the patient was not felt to be a TPA candidate as she was last known normal prior to going to bed. She had a CTA to determine if a large vessel occlusion was present which was negative. She was admitted to the hospital for treatment and evaluation of an acute stroke. Her head CT was negative for a bleed. She denies shortness of breath, chest pain, palpitations, nausea, vomiting, or diarrhea. She has no fever, chills, cough, dysuria or pyuria. She feels her speech is normal. Patient History Medical History Chronic renal disease, stage 3, moderately decreased glomerular filtration rate (GFR) between 30-59 mL/min/1.73 square meter (Acute) Concussion (Acute) Crohn's disease (Acute) Diabetes (Acute) GI bleed (Acute) History of shingles (Acute) Hx SBO (Acute) Hyperlipidemia (Acute) Hypertension (Acute) Hypothyroid (Acute) Ileostomy, has currently (Acute) Neuropathy (Acute) Osteoarthritis (Acute) Pacemaker (Acute) Sleep apnea (Acute) Afib (Acute) Surgical History Status post colectomy (Acute) Status post hysterectomy (Acute) Status post tonsillectomy and adenoidectomy (Acute) Family & Social History Family History: Reviewed 04/13/18 by Magali Irvin MD Social History: household members none Prior Living Arrangements House lives independently Yes caregiver/support person No Safety & Behavioral: Feels Safe in Current No Environment Been Physically Hurt or No Threatened By a Person Suicidal Ideation Description None Suicide Plan Description No Plan Tobacco & Substance use: Smoking Status Never smoker alcohol intake former alcohol intake frequency 0-2 drinks per day Substance Use Type does not use Meds Home Medications Medication Instructions Recorded Confirmed Type ascorbic acid (vitamin C) 1 cap PO QDAY #0 09/02/16 04/13/18 History ropinirole 2 tab PO HS #0 09/02/16 04/13/18 History ferrous sulfate [Feosol] 325 mg PO BID #60 tab 09/03/16 Rx pantoprazole [Protonix] 40 mg PO QDAY #30 tab 09/03/16 Rx nystatin [Nystop] 0 gm TOPICAL BID #30 09/27/16 Rx acetaminophen [Tylenol] 650 mg PO Q4H PRN 04/13/18 04/13/18 History furosemide 20 mg PO DAILY 04/13/18 04/13/18 History gabapentin 600 mg PO BID 04/13/18 04/13/18 History hydroxyzine HCl 1 tab PO BEDTIME PRN 04/13/18 04/13/18 History levothyroxine 125 mcg PO DAILY 04/13/18 04/13/18 History metoprolol succinate 1 tab PO BID 04/13/18 04/13/18 History Allergies Allergy/AdvReac Type Severity Reaction Status Date / Time Penicillins [PENICILLINS] Allergy Unknown Verified 04/13/18 09:51 Review of Systems Review of Systems All systems reviewed & are unremarkable except as noted in HPI and below Exam Vital Signs (past 8 hours): - 04/13/18 08:43 04/13/18 09:20 04/13/18 10:52 Temperature 97.3 F L Pulse Rate 67 61 60 Respiratory Rate 18 18 18 Blood Pressure 158/64 H Blood Pressure [Left Arm] 154/81 H 119/61 Pulse Oximetry 95 96 98 04/13/18 11:42 04/13/18 13:00 Temperature 97.1 F L Pulse Rate 60 62 Respiratory Rate 14 18 Blood Pressure 137/80 Blood Pressure [Left Arm] 122/78 H Pulse Oximetry 95 Oxygen Delivery Method Room Air Narrative Exam Narrative: HEENT: NC/AT PERRL, EOMI, Oropharynx clear, Neck supple, no adenopathy, no bruits Lungs: clear to auscultation CV: RRR nl Sl S2 CRISS Abd: obese/ soft /non tender/ ileostomy bag filled with stool Ext: no edema Neuro: Cranial nerves intact Sensation grossly intact Strength symmetric and equal Reflexes equal Gait not assessed Objective Labs Result Diagrams: 04/13/18 09:27 04/13/18 09:27 Labs: Laboratory Results - last 24 hr 04/13/18 04/13/18 04/13/18 09:27 09:27 10:10 WBC 6.7 RBC 4.53 Hgb 14.1 Hct 42.5 MCV 93.8 MCH 31.1 MCHC 33.1 RDW 14.7 Plt Count 163 Neut % (Auto) 78.7 H Lymph % (Auto) 11.9 L [place] % (Auto) 6.7 Eos % (Auto) 2.1 Baso % (Auto) 0.6 Neut # (Auto) 5200 PT 10.8 INR 1.0 APTT 29 D Sodium 147 H Potassium 4.5 Chloride 109 H Carbon Dioxide 25 BUN 39 H Creatinine 1.80 H Estimated GFR 27.4 L BUN/Creatinine Ratio 21.7 Glucose 255 H Calcium 9.0 Total Bilirubin 0.6 AST 37 H ALT 35 Alkaline Phosphatase 127 H Total Protein 7.0 Albumin 3.9 Globulin 3.1 Albumin/Globulin Ratio 1.3 Assessment & Plan (1) CVA (cerebral vascular accident): Problem details: Patient will received an aspirin. She will be seen by PT/OT/Speech Blood pressure to allow to be elevated given recent stroke Will resume metoprolol for SBP greater than 180. Start Statin, check fasting lipid profile Qualifiers: CVA mechanism: unspecified Laterality of affected vessel: Precerebral and cerebral artery: Qualified Code(s): I63.9 - Cerebral infarction, unspecified Current visit: Yes Status: Acute (2) Renal failure: Problem details: Stage 3 CRF-etiology not clear. Will hold Lasix and follow closely Current visit: No Status: Acute (3) Type 2 diabetes mellitus: Problem details: Will resume her usual home medications Current visit: Yes Status: Acute (4) Hypertension: Problem details: Hold metoprolol for now. Will restart in am Current visit: Yes Status: Acute (5) Morbid obesity: Current visit: Yes Status: Acute (6) Paroxysmal atrial fibrillation: Current visit: Yes Status: Acute Quality VTE Deep Vein Thrombosis/Pulmonary Embolism Present on Admission: No
[2018-04-13] MEDS: SODIUM CHLORIDE 0.9% 1,000 ML 125 ML IV (16:18)
[2018-04-13] MEDS: INSULIN ASPART 100 UNIT/ML INSULN PEN SUBCUT (17:24)
[2018-04-13] MEDS: ENOXAPARIN 30 MG/0.3 ML SYRINGE SUBCUT (18:14)
[2018-04-13 19:48] LABS: Hemoglobin A1C% w Est Avg Glu 8.3 % (4.0-6.0)
[2018-04-13] MEDS: ROPINIROLE 1 MG TABLET PO (20:33)
[2018-04-13] MEDS: ATORVASTATIN 20 MG TABLET 80 MG PO (20:33)
--- NOTE | 2018-04-14 01:04 | PC.NURSE ---
Pt. requesting sleeping pills.Dr. Giordano called awaiting call back.
--- NOTE | 2018-04-14 01:50 | PC.NURSE ---
Checked pt. to administer Ambien, but she's sleeping now. Will monitor.
[2018-04-14 03:10] VITALS: BP 140/83; PULSE 75; RESP 18; TEMP 36.3; O2SAT 95
[2018-04-14] MEDS: ZOLPIDEM 5 MG TABLET PO (03:15)
--- NOTE | 2018-04-14 03:21 | PC.NURSE ---
Pt. awake requesting sleeping pill, 5 mg. admin. No C/O GILL, CP & other discomfort. Pt. i nstructed staff to leave her alone, so she can go back to sleep. Will monitor.
--- NOTE | 2018-04-14 07:02 | PC.NURSE ---
Pt. did not void all shift, bladder scanned only 55 ml. noted. Pt. requesting to go home, states I don't want to be here. Will report to day RN.
[2018-04-14 08:00] VITALS: BP 139/68; PULSE 71; RESP 20; O2SAT 96
[2018-04-14] MEDS: ASPIRIN EC 325 MG TABLET PO (08:25)
[2018-04-14] MEDS: INSULIN ASPART 100 UNIT/ML INSULN PEN SUBCUT (08:26)
[2018-04-14] MEDS: SODIUM CHLORIDE 0.9% 1,000 ML 125 ML IV (09:33)
--- NOTE | 2018-04-14 10:09 | PC.NURSE ---
Joann states emphatically that she Wants to go home NOW! She refuses breakfast. Lying sidewise in bed with legs dangling over the edge, slightly short of breath and wheezing faintly. She denies pain. Refuses Sotolol dose this AM, states Dr. Yuan told her not to take it anymore. Tele SR/BBB. VSS. She is awake and alert. Does not want to participate in NIH stroke scale eval. Appears to be symmetrical overall with somewhat weak BLEs. Working with PT to get up in chair. Awaiting MD rounds.
--- NOTE | 2018-04-14 10:42 | OT.IP.EVAL ---
Current Diagnoses Type 2 diabetes mellitus without complications (04/13/18) Morbid (severe) obesity due to excess calories (04/13/18) Essential (primary) hypertension (04/13/18) Paroxysmal atrial fibrillation (04/13/18) Cerebral infarction, unspecified (04/13/18) Unspecified kidney failure (04/13/18) Past Medical History (Last Reviewed 04/13/18 @ 16:16 by Magali Irvin MD) Chronic renal disease, stage 3, moderately decreased glomerular filtration rate (GFR) between 30-59 mL/min/1.73 square meter (Acute) Concussion (Acute) Crohn's disease (Acute) Diabetes (Acute) GI bleed (Acute) History of shingles (Acute) Hx SBO (Acute) Hyperlipidemia (Acute) Hypertension (Acute) Hypothyroid (Acute) Ileostomy, has currently (Acute) Neuropathy (Acute) Osteoarthritis (Acute) Pacemaker (Acute) Sleep apnea (Acute) Afib (Acute) Surgical History (Last Reviewed 04/13/18 @ 16:16 by Magali Irvin MD) Status post colectomy (Acute) Status post hysterectomy (Acute) Status post tonsillectomy and adenoidectomy (Acute) Occupational Therapy Inpatient Evaluation/Re-Eval M1 PT/OT-IP Prior Functional Status Start: 04/13/18 16:22 Freq: NEEDED Status: Active Protocol: Document 04/13/18 14:45 MDD (Rec: 04/13/18 16:38 MDD [email or web address]) Medical Review Prior Functional Status Medical History Reviewed Yes Communication normal Mobility and Gait independent with no AD Activities of Daily Living and IADL's independent with ADL's Social History Household Members none Living Arrangements House Number of Floors (Floors) One Floor Number of Stairs To Enter/Railing? no steps Home Environment High Toilet Walk in Shower Employment Status Retired Additional Social History Comment Pt lives alone in a house in [facility]. M1 PT/OT-IP Prior Functional Status Start: 04/14/18 10:09 Freq: NEEDED Status: Active Protocol: Document 04/14/18 10:09 CCC (Rec: 04/14/18 10:42 CCC [email or web address]) Medical Review Prior Functional Status Medical History Reviewed Yes Communication normal Mobility and Gait independent with no AD Activities of Daily Living and IADL's independent with ADL's Social History Household Members none Living Arrangements House Number of Stairs To Enter/Railing? no steps Home Environment High Toilet Walk in Shower Employment Status Retired Additional Social History Comment Pt lives alone in a house in [facility]. M2 OT-IP Current Condition Start: 04/14/18 10:09 Freq: Status: Active Protocol: Document 04/14/18 10:09 [facility] (Rec: 04/14/18 10:42 [facility] [email or web address]) Occupational Therapy Current Condition Current Condition Evaluation Date 04/14/18 Treatment Diagnosis weakness Diagnosis Onset Date 04/13/18 Post Operative Precautions Other Precautions colostomy bag M3 OT- IP Subjective and Pain Start: 04/14/18 10:09 Freq: Status: Active Protocol: Document 04/14/18 10:09 [facility] (Rec: 04/14/18 10:42 [facility] [email or web address]) OT- Subjective Occupational Therapy Visit Type Type Initial Evaluation Visit Start Time 09:35 Visit Stop Time 10:00 Total Visit Minutes 25 Occupational Therapy Visit Comments Patient/Caregiver Goals Pt insistent that she wants to go home. OT Pain Assessment Pain When Pain Assessed At Rest Pain Present Pain Present Denied Pain M4 OT- IP ADL's Start: 04/14/18 10:09 Freq: Status: Active Protocol: Document 04/14/18 10:09 [facility] (Rec: 04/14/18 10:42 [facility] [email or web address]) OT ADL-Grooming General Evaluation Grooming Ability Standby Assistance Areas Needing Assistance Retrieving/Set-up of Grooming Items Comments OT Grooming Comments Pt able to stand to do all grooming needs and having to sit half way through grooming. Pt having to rest in the recliner while finishing to brush her teeth. OT ADL-Dressing Comments OT Dressing Comments Pt refuses to participate for any dressing needs. Pt refusing to get any AED. OT ADL-Toileting Comments OT Toileting Comments Pt not wanting to use the bathroom. Pt states prior at home has no difficulties. OT ADL-Bathing Comments OT Bathing Comments Pt not wanting to shower. M5 OT- IP IADL's Start: 04/14/18 10:09 Freq: Status: Active Protocol: Document 04/14/18 10:09 [facility] (Rec: 04/14/18 10:42 [facility] [email or web address]) OT-Instrumental Activities of Daily Living Home Safety Awareness Home Safety Comments Pt states does everything on her own at home and has help from relatives if needed. M6 OT- IP Functional Cognition Start: 04/14/18 10:09 Freq: Status: Active Protocol: Document 04/14/18 10:09 [facility] (Rec: 04/14/18 10:42 [facility] [email or web address]) Cognitive Factors Limiting Selfcare Function Cognitive Ability Level of Alertness Alert Patient Orientation Name Place Situation Attention Span Ability Capable of Focused Attention Capable of Sustained Attention Ability to Follow Commands Able to Follow One Step Commands Safety Awareness Underestimates Need for Assistance Problem Solving Ability Needs Assist to Identify Solutions Cognitive Comments Cognitive Assessment Comments Pt very resistent to participate in therapy and states that she is fine and wants to go home. Pt refusing to shower and would benefit from shower at notes hands are dirty and odor in the room. OT- Vision and Hearing OT- Hearing Assessment OT- Hearing Assessment WFL M7 OT- IP Mobility and Balance Start: 04/14/18 10:09 Freq: Status: Active Protocol: Document 04/14/18 10:09 [facility] (Rec: 04/14/18 10:42 [facility] [email or web address]) OT- Bed Mobility Assessment Rolling Type of Rolling Roll to Left Supine to Sit Supine to Sit Assist Standby Assistance Head of Bed Elevated Bedrails OT-Transfer Assessment Sit to and From Stand Sit to and from Stand Standby Assistance Transfers Transfer Ability Standby Assistance Technique Transfer Destination Chair Devices Transfer Assistive Devices Gait Belt Comments Mobility Comments Pt states has adjustable bed and with heavy exertion and use of grab bars able to get up. Pt able to walk to sink with gait belt and SBA. Pt needing increased time and had to sit half way through grooming task but denies being SOB, even through breathing hard. OT- Balance Assessment Sitting Balance and Reactions Static Sitting Balance Ability Normal Dynamic Sitting Balance Ability Normal Standing Balance and Reactions Static Standing Balance Ability Good Dynamic Standing Balance Ability Fair M8 OT- IP Objective Assessments Start: 04/14/18 10:09 Freq: Status: Active Protocol: Document 04/14/18 10:09 [facility] (Rec: 04/14/18 10:42 [facility] [email or web address]) OT Gross Range of Motion Upper Extremity Range of Motion Assessment Within Functional Limits OT Strength Comments Strength Comments Pt able to do bed mobilty and transfer, therefore strength WFL for needs at this time. OT- Coordination Assessment Comments Coordination Comments Increased time for FMS during grooming. M9 OT- IP Assessment and Plan Start: 04/14/18 10:09 Freq: Status: Active Protocol: Document 04/14/18 10:09 [facility] (Rec: 04/14/18 10:42 [facility] [email or web address]) OT Summary Assessment and Plan Potential Rehabilitation Potential Good Analytic Complexity at Evaluation Moderate Summary OT Impairments Strength Balance Coordination Dressing Toileting Bathing Progress Towards Goals Slow Progress due to Medical Issues Slow Progress due to Activity Tolerance Slow Progress due to Cognition Assessment Summary Pt MOD complexity main barrier decreased safety awareness, dynamic balance, endurance, and resistant to actively participating in therapy. Pt feels she is at baseline and wants to go home. Pt questionable safety and hygiene independence prior at home. Recommend home with assist for pt and home health. Goals Grooming Goal Independent Dressing Goal Independent Toileting Goal Independent Bathing Goal Standby Assistance Toilet Transfer Goal Independent Shower Transfer Goal Standby Assistance Patient/Caregiver Education Goal Demonstrate Energy Conservation and Pacing Caregiver Independent Assisting Patient Days to Meet Goals 4 Frequency of Treatment Frequency Of Treatment Once a Day Treatment Plan OT Treatment Plan ADL Training Functional Cognition Training Functional Mobility Patient/Family Education Discharge Planning Other Treatment Recommendations and Next Energy conservation, safety Treatment Focus with showering and dressing. Discharge Recommendations OT Discharge Recommendations Home with Assistance Home Health
--- NOTE | 2018-04-14 11:16 | PT.IPTN ---
Current Diagnoses Type 2 diabetes mellitus without complications (04/13/18) Morbid (severe) obesity due to excess calories (04/13/18) Essential (primary) hypertension (04/13/18) Paroxysmal atrial fibrillation (04/13/18) Cerebral infarction, unspecified (04/13/18) Unspecified kidney failure (04/13/18) Physical Therapy Treatment Note M2 PT-IP Current Condition Start: 04/13/18 16:22 Freq: NEEDED Status: Active Protocol: Document 04/13/18 14:45 MDD (Rec: 04/13/18 16:38 MDD [email or web address]) Physical Therapy Current Condition Current Condition Evaluation Date 04/13/18 Treatment Diagnosis s/p CVA Onset Date 04/13/18 Precautions Other Precautions colostomy bag M3 PT-IP Subjective Start: 04/13/18 16:22 Freq: NEEDED Status: Active Protocol: Document 04/14/18 10:59 LRN (Rec: 04/14/18 11:16 LRN [id number]) Subjective Physical Therapy Visit Type Type Treatment Note Visit Start Time 10:05 Visit Stop Time 10:35 Total Visit Minutes [address] Giordano that pt status appeared baseline. Might benefit from outpatient therapy. Number of OUTDOOR ADVENTURE GUIDES Visits 0 Physical Therapy Visit Comments Patient Comments Pt adamant she is fine. Feels she is safe to go home. Denies being SOB after gait assessment. Therapy Pain Assessment Pain When Pain Assessed During Mobility Pain Present Pain Present Denied Pain M4 PT-IP Mobility and Gait Start: 04/13/18 16:22 Freq: NEEDED Status: Active Protocol: Document 04/14/18 10:59 LRN (Rec: 04/14/18 11:16 LRN [id number]) PT-Bed Mobility Assessment Supine to Sit Supine to Sit Independent Sit to Supine Sit to Supine Independent Scooting Scooting to Edge of Bed Independent PT-Transfer Assessment Sit to and From Stand Sit to and from Stand Standby Assistance Equipment Transfer Assistive Device Gait Belt Transfers Transfer Destination Chair Transfer Ability Level of Assist Independent Comments Mobility Comments Pt did an uncontrolled sit with transfer bed to chair. She was SOB after gait assessment. SpO2 95%, HR 102. Gait Assessment Gait Gait Assistance Required: Independent Distance (Feet) (feet) 50 Able to Maintain Weight Bearing Status Yes During Gait Assistive Devices Assistive Device Gait Belt Gait Deviations General Gait Pattern Within Normal Limits Decreased Stride Length Step-to Gait Wide Based Gait Comments Gait Comments Pt demonstrates slightly wide BHOS, appears mildly unsteady. Used railing initially, but was able to ambulate with railing when instructed. PT-Balance Assessment Sitting Balance and Reactions Static Sitting Balance Ability Good Dynamic Sitting Balance Ability Good Standing Balance and Reactions Static Standing Balance Ability Fair Dynamic Standing Balance Ability Fair Comments Other Balance Tests/Deviations/Treatment Initial sitting balance was : poor to fair, but when requested the pt was able to sit upright unsupported. She has a tendency to slump in the chair and plop in chair. M5 PT-IP Objective Assessments Start: 04/13/18 16:22 Freq: NEEDED Status: Active Protocol: Document 04/14/18 10:59 LRN (Rec: 04/14/18 11:16 LRN [id number]) Strength Lower Extremity Strength Assessment Left Impaired Hip L hip flexion 4+/5, R hip flexion 5/5 Knee L knee extension 5/5, R knee flexion 5/5 Ankle L ankle df 4+/5, R ankle df 5/ 5 Comments Strength Comments Very minor deficits noted L LE - not enought to functionallly affect gait. Other Assessments Other Other Assessments After gait in sitting: SpO2 95 % HR 102 Supine: SpO2 93%, HR 90-101 After transfer to chair and with short rest: XpO2 94%, HR 88. M6 PT-IP Treatment Start: 04/13/18 16:22 Freq: NEEDED Status: Active Protocol: Document 04/13/18 14:45 MDD (Rec: 04/13/18 16:38 MDD [email or web address]) Physical Therapy Treatment Education Education Provided Safety M7 PT-IP Assessment and Plan Start: 04/13/18 16:22 Freq: NEEDED Status: Active Protocol: Document 04/14/18 10:59 LRN (Rec: 04/14/18 11:16 LRN [id number]) PT Summary Assessment and Plan Summary Impairments Strength Transfers Activity Tolerance Progress Towards Goals Goals Met Assessment Summary Pt is independent with transfer and gait although she does demonstrate uncontrolled sitting and SOB after gait indicating poor endurance. She has mild weakness of her L ankle DF and hip flexors. She does not recognize when she becomes SOB. Being independent with transfer and gait she is therefore at her functional baseline level, but the pt might benefit from outpatient physical therapy to improve stability with transfers and improve endurance afer discharge from hospital. Pt may not be agreeable. Goals Bed Mobility Goal Independent Transfer Goal Independent Gait Goal Independent Gait Distance 50 Days to Meet Goals 3 Discharge Recommendations PT Discharge Recommendations Home Other Discharge Recommendations Outpatient physical therapy.
--- NOTE | 2018-04-14 11:36 | CM.DANOTE ---
Addendum entered by Natasha Foreman LPN 04/14/18 14:26: Pt has had a lengthy discussion with Dr. Giordano and has her d/c to home order. She is now smiling, looks relaxed. Pants have been obtained for her. Called [employer] for her and with will be here in 5 minutes. Pt confirms she gets in via a martínez pad to her home so there are no worries re her getting into her home. Original Note: Addendum entered by Natasha Foreman LPN 04/14/18 11:57: [employer] # provided but pt now does need assist with this saying that she has never used [employer] before. She does drive. Discussed closer cab options: [employer] is now her choice but explained that while this [employer]anner would be happy to assist her in setting this up it could not be done until there is a d/c order from the physician. Lunch arrived, pt refusing to eat. I just want to go home now. HANH Stahl is update. P: assist pt with transport home when Dr. Giordano has deemed her stable for d/c. Original Note: Discharge Planning/Care Management DCP: assessment: case received, EMR reviewed and met with pt after speaking with team in morning rounds. Pt is insisting that she be allowed to go home now. Introduced self and role. Pt is a 77 year old female who lives in [place]. Payer: Medicare and [facility]. PCP: Dr. Felisa Yuan. Hospitalist staff are following. Pt admitted yesterday late morning after being brought to ER by EMS. She says she is fine today, does note wish for anything other than that the staff help her to get home. Dr. Giordano is reviewing her case now. Pt says her pants were cut off by the ER staff and she arrived with no shoes. RN kristal Moctezuma is looking into back up clothing that [facility] may have. Will provide [employer] number and follow as able for assistance. CM Discharge Assessment Start: 04/14/18 11:30 Freq: Status: Active Protocol: Document 04/14/18 11:30 ITV (Rec: 04/14/18 11:35 ITV [id number]) Discharge Planning Assessment Advance Directives? Yes History Provided By Patient Medical Record Prior Living Arrangements House Household Members none Comment lives alone. does not wish to discuss any support system. Does say she has a sister in [facility] who is helpful. Comment pt wishes [employer] contact number so she can go home as soon as the doctor releases her. Independent with ADL's Yes Is patient alert and oriented? Yes Comment PT/OT/BOILER WATER TESTER are ordered. Pt is not wishing much attention or assist. Just let me go home. Why will no one listen to me. Comment see therapy notes for dme details. Pt says she uses no assistive device. Has colostomy which she manages Comment encouraged consideration of [facility]. Pt says she knows what this is and is very firm in her refusal of same. Discharge Plan Home Transportation Arrangement [employer]. Pt will set this up after number is provided. Whiteboard Updated in Patient Room with Yes name and ext. # of Counter Attendant Review Status In Process Next Review Type Continued Stay Review
--- NOTE | 2018-04-14 12:31 | PC.NURSE ---
Joann is becoming more and more agitated as time goes on as she is awaiting MD's written discharge orders. She tells each staff member that she is leaving NOW, and Dr. Giordano is aware that she wishes to leave, but states he has other, more urgent cases to attend to before he can write those orders. She now states she will go AMA and get taxi coming herself. Dr. Giordano once again updated as to pt. status.
--- NOTE | 2018-04-14 12:53 | SLP.IPNOTE ---
GLOBAL LOGISTICS MANAGER attempted to evaluate patient for swallowing following code stroke. Patient was very agitated and immediately stated that she wanted to go home. GLOBAL LOGISTICS MANAGER explained the reason for the evaluation and severity of a code stroke. Patient insisted I am fine. I'm not going to get pneumonia. Patient refused to participate in a swallow or speech evaluation, again insisting that she was fine. She gathered her things from the bedside table and began to attempt to stand up. Stated, I am leaving. I need you to walk me to the front door and call me a cab. Now. [id number]. She expressed frustration that she has been requesting this all morning and no one has helped her. GLOBAL LOGISTICS MANAGER reinforced the importance of confirming medical clearance before leaving in order to assure the patient's safety. She again stated that she wants to go. GLOBAL LOGISTICS MANAGER spoke with nursing who called Dr Giordano. GLOBAL LOGISTICS MANAGER and RN returned to patient's room and discussed the importance of waiting for the doctor to put in a discharge summary prior to leaving. The patient stated, I am legally able to leave whenever I want to. I want to leave. RN and GLOBAL LOGISTICS MANAGER confirmed that this is true and again contacted MD. MD present to speak with patient after GLOBAL LOGISTICS MANAGER and RN left. At this time, patient is not agreeable to participate in an evaluation with speech therapy. Cancel order at this time. Please reconsult if/when warranted. No billable service.
--- NOTE | 2018-04-14 13:59 | PC.NURSE ---
Joann verbalized understanding of disch. teaching, medication management, and followup appt. with Dr. Yuan. She was able to amb. to [facility] and back and dress herself independently. [facility] She has 3 new prescriptions in hand.
--- NOTE | 2018-04-14 14:40 | P.DS_ITS ---
History of Present Illness Date Patient Seen: 04/14/18 Time Patient Seen: 14:37 Chief complaint: Code Stroke Narrative: Patient is a 77 years of age female who notes that she slipped out of her bed and onto her rump. She was on the ground and she says she could not seem to be able to get up. All she was able to do was reach up and get the phone to call the ambulance. The ambulance service had a special method of getting into her home that was worked out in the past. Consequently patient was taken to the ER for further eval. In the emergency room setting patient was noted to have a left hemiparesis with left facial flattening. Patient was admitted to the hospital for suspected stroke. Discharge Providers Date of admission: 04/13/18 10:53 Primary care physician: Ted Yuan MD Consults: 04/13/18 12:31 Consult to Discharge Planning Routine Comment: Consult to Occupational Therapy Evaluate & Treat Comment: Physician Instructions: Evaluate and treat Consult to Physical Therapy Evaluate & Treat Comment: Physician Instructions: Evaluate and Treat Consult to Speech Therapy Evaluate & Treat Comment: Physician Instructions: Evaluate and treat Discharge provider: Christopher Giordano MD Summary Discharge Diagnosis: 1. 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 Mild cognitive decline 3. History of pacemaker placement OTHER PAST MEDICAL HX: Chronic renal disease Crohn's disease Diabetes GI bleed History of shingles Hx SBO Hyperlipidemia Hypertension Hypothyroid Ileostomy Neuropathy Osteoarthritis Sleep apnea Afib Hospital Course: Patient is a 77 years of age female who notes that she slipped out of her bed and onto her rump. She was on the ground and she says she could not seem to be able to get up. All she was able to do was reach up and get the phone to call the ambulance. The ambulance service had a special method of getting into her home that was worked out in the past. Consequently patient was taken to the ER for further eval. In the emergency room setting patient was noted to have a left hemiparesis with left facial flattening. Patient was admitted to the hospital for suspected stroke. A CT of the head was done which was negative for acute CVA. Please note that CT of the head can be a falsely negative on admission. Patient has a pacemaker so is precluded from undergoing a MRI of the brain. The following morning on April 14 physical therapy notes patient has arm possibly has a very mild left lower extremity weakness. If this is the case then this would be presumed as a residual deficit. Though the CT of the head was negative there may in fact have been a new CVA with minimal left lower extremity residual weakness. Physical therapy also note patient is safe for discharge to home. Therapist is aware patient lives alone. Patient is able to ambulate without difficulty and is safe to mobilize without assistance. Patient notes that she does have memory of problems. Since she is still quite functional this would be nothing more than mild cognitive decline. She certainly does not meet the criteria for dementia. I reviewed her medications she takes regularly at home which includes Vistaril for itch at night she takes it routinely. Patient also on Neurontin 600 mg p.o. b.i.d.. I adjusted down the Neurontin at 300 mg b.i.d.. I switched her nighttime med routine to trazodone 50 mg at bedtime. She could take a doxepin 10 mg once each evening as needed only for continued itchy skin. This would not be taken routinely like the Vistaril was. Patient have follow with her primary care doctor Dr. Yuan when he is next available to review how she is doing. Exam Vital Signs (past 8 hours): - 04/14/18 08:00 Pulse Rate 71 Respiratory Rate 20 Blood Pressure 139/68 Pulse Oximetry 96 Oxygen Delivery Method Room Air Narrative Exam Narrative: Patient has noted awake and alert no apparent distress anxious for discharge Psychiatric patient is well-oriented mood is pleasant a bit anxious for discharge to get home affect appropriate Respiratory clear to auscultation good air flow no wheezes no crackles Cardiovascular regular in rate and rhythm no murmurs are noted Gastrointestinal soft nontender positive bowel sounds Neurologic no motor strength loss noted during my exam. Cranial nerves 2-12 grossly intact no facial flattening or drooping Objective Labs Result Diagrams: 04/13/18 09:27 04/13/18 09:27 Labs: Laboratory Results - last 24 hr 04/13/18 09:27 Hemoglobin A1c 8.3 H Discharge Plan Discharge Plan Patient Disposition: Home Discharge comment: Patient will see her PCP Dr Yuan in close follow up after discharge. SEE DR. YUAN ON TUE. 04/19/18 AT 3:45 CHECK IN TIME IN [facility] OFFICE. Provider Discharge Instructions Diet: Diet as Tolerated Diet comment: You have not eaten anything today in hospital. Please eat upon leaving Activity: as tolerated. Skin/Wound/Dressing Care Report to your healthcare provider any signs of infection, such as:: chills, fever, night sweats and increased pain Discharge Data Primary Care Provider: Ted Yuan Attending Provider: Magali Irvin Admit Date/Time: 04/13/18 10:53 Discharges patient from system. Discharge Date/Time: 04/14/18 14:00 Quality VTE Deep Vein Thrombosis/Pulmonary Embolism Present on Admission: No
== END 2018-04-14 14:00 | disposition home or self-care (01) ==
LOC: ED 10:40 → AC 14:45
PROVIDERS: Admitting Provider Internal Medicine; Emergency Provider Emergency Medicine; PCP Internal Medicine; Visit Provider Internal Medicine
DX: R53.1 Weakness (principal); I48.0 Paroxysmal atrial fibrillation; E11.40 Type 2 diabetes mellitus with diabetic neuropathy, unspecified; I12.9 Hypertensive chronic kidney disease with stage 1 through stage 4 chronic kidney disease, or unspecified chronic kidney disease; E11.22 Type 2 diabetes mellitus with diabetic chronic kidney disease; N18.3 Chronic kidney disease, stage 3 (moderate); E03.9 Hypothyroidism, unspecified; E66.9 Obesity, unspecified; Z68.37 Body mass index [BMI] 37.0-37.9, adult; Z93.2 Ileostomy status; K50.90 Crohn's disease, unspecified, without complications; W06.XXXA Fall from bed, initial encounter; Z95.0 Presence of cardiac pacemaker
CPT/HCPCS: 36415; 70450; 70496; 70498; 80053; 82962; 83036; 85025; 85610; 85730; 93005; 93010; 93041; 97116; 97161; 97166; 97530; 99283; 99285; 99291; 99292; G0378; J1650; Q9967

== ENCOUNTER → 2018-07-20 14:26 | Oncology outpatient (ONC) | payer MEDICARE, OTHER, SELFPAY ==
[2018-04-13 15:13] VITALS: BMI 37.2
[2018-07-20 14:55] LABS: Add Manual Diff / Slide Review NO; Basophils Percent Auto 0.6 % (0-2); Eosinophils Percent Auto 1.7 % (2-4); Hemoglobin 14.7 g/dL (12.0-16.0); Lymphocytes Percent Auto 14.5 % (25-40); Mean Corpuscular HGB Conc 32.6 % (30-36); Mean Corpuscular Hemoglobin 30.7 PG (26-34); Mean Corpuscular Volume 94.3 fL (80-100); Monocytes Percent Auto 8.1 % (3-14); Neutrophils Absolute Auto 4900 /uL (3000-5900); Neutrophils Percent Auto 75.1 % (50-75); Platelet Count 280 X10^3/uL (150-400); Red Blood Cell Count 4.77 X10^6/uL (4.0-5.2); Red Cell Distribution Width 14.8 % (11.6-14.8); White Blood Cell Count 6.5 X10^3/uL (4.5-11.0)
[2018-07-20 15:25] LABS: Alanine Aminotransferase 26 IU/L (9-52); Albumin 3.9 g/dL (3.5-5.0); Albumin Globulin Ratio 1.3 (1.0-2.8); Alkaline Phosphatase 102 U/L (38-126); Aspartate Aminotransferase 29 IU/L (14-36); BUN Creatinine Ratio 13.9 (6-22); Bilirubin Total 0.5 mg/dL (0.2-1.3); Blood Urea Nitrogen 25 mg/dL (7-17); Calcium 9.7 mg/dL (8.4-10.2); Carbon Dioxide 23 mmol/L (22-32); Chloride 109 mmol/L (98-107); Estimated Glomerular Filt Rate 27.3 mL/min (>60); Globulin 3.1 g/dL (1.7-4.1); Glucose 140 mg/dL (80-110); HEMOLYSIS 25 (0-50); Potassium 4.6 mmol/L (3.4-5.1); Sodium 143 mmol/L (137-145)
[2018-07-20 15:34] LABS: Digoxin < 0.4 ng/mL (0.8-2.0)
== END ==
PROVIDERS: PCP Internal Medicine; Visit Provider Internal Medicine
DX: I48.1 Persistent atrial fibrillation (principal); E11.22 Type 2 diabetes mellitus with diabetic chronic kidney disease; N18.9 Chronic kidney disease, unspecified
CPT/HCPCS: 36592; 80053; 80162; 85025